=== PATIENT | female | born 1955 | race Caucasian/White ===

== ENCOUNTER 2018-04-27 10:32 | Emergency (ER) | payer OTHER ==
[~2018-04-27] VITALS: Ht 162.6 cm; Wt 108.9 kg
[~2018-04-27 10:32] MED LIST: ACIPHEX 20 MG T20 MG PO; ADULT LOW DOSE81 MG PO; ALLEGRA180 MG PO; AMOXICILLIN875 MG PO; BENTYL20 MG PO; CIPRO250 MG PO; COREG CR20 MG PO; CYTOMEL 5MCG TA5 MC1 NG; FAMCICLOVIR125 MG PO; FENOFIBRATE200 MG PO; FISH OIL 1,0001 EAC5 PO; FLEXERIL PO; FLONASE 0.05%50 MCG NASAL; GLUCOPHAGE XR750 MG PO; GLUMETZA500 MG PO; LEVAQUIN 750 M750 MG PO; MEDROLDOSEPACK PO; NAPROSYN500 MG PO; NEURONTIN300 MG PO; NORCO 5-325 TA1 EACH PO; PREMARIN0.625 MG PO; PREVACID; PYRIDIUM200 MG PO; SINGULAIR; SINGULAIR 10 MG10 M1 PO; SYNTHROID125 MCG PO; SYNTHROID150 MCG PO; VITAMIN B-12500 MCG PO; VITAMIN D1000 UNI1 PO; VITAMIN D250000 UNIT PO; VOLTAREN GEL 1100 G2 TOP; ZOFRAN ODT4 MG PO; ZYRTEC; ZYRTEC10 MG PO
[2018-04-27] MEDS ORDERED: PRILOSEC OTC20 MG PO (10:46)
[2018-04-27] MEDS ORDERED: KEFLEX500 M1 PO (10:46)
[2018-04-27] MEDS ORDERED: IMDUR 30 MG TAB30 M1 (10:47)
[2018-04-27] MEDS ORDERED: PAXIL10 MG PO (10:47)
[2018-04-27] MEDS ORDERED: MAGOX 400400 MG PO (10:47)
[2018-04-27] MEDS ORDERED: TUMS PO (10:48)
[2018-04-27 11:08] LABS: ABSOLUTE BASOPHILS 0.1 thou/uL (0.0-0.2); ABSOLUTE EOSINOPHILS 0.4 thou/uL (0.0-0.7); ABSOLUTE LYMPHOCYTES 2.4 thou/uL (0.8-5.3); ABSOLUTE MONOCYTES 0.5 thou/uL (0.0-1.2); BASOPHILS 1.1 %; EOSINOPHILS 6.6 %; HEMATOCRIT 43.1 % (37.0-47.0); HEMOGLOBIN 14.3 gm/dL (12.0-15.0); LYMPHOCYTES 37.5 %; MCH 30.7 pg (26.0-34.0); MCHC 33.3 g/dL (28.0-37.0); MCV 92.4 fL (80.0-100.0); MONOCYTES 7.9 %; MPV 7.6 fl. (7.2-11.1); NUCLEATED RBCS 0 /100WBC; PLATELET COUNT* 206 thou/uL (150-400); POLYS 46.9 %; RBC 4.66 mil/uL (4.20-5.00); RDW-CV 13.2 % (10.5-14.5); WBC 6.4 thou/uL (4.0-11.0)
[2018-04-27 11:24] LABS: ANION GAP 8 mmol/L (7-16); APTT 27.6 Seconds (25.0-31.3); BUN 16 mg/dL (7-18); CALCIUM 8.6 mg/dL (8.5-10.1); CHLORIDE 105 mmol/L (98-107); CO2 24 mmol/L (21-32); CREATININE 0.8 mg/dL (0.6-1.3); GLUCOSE 176 mg/dL (70-99); INR 1.1; POTASSIUM 4.1 mmol/L (3.5-5.1); PROTIME 10.9 Seconds (9.20-11.50); SODIUM 137 mmol/L (136-145)
[2018-04-27 11:42] LABS: ALBUMIN 3.4 g/dL (3.4-5.0); ALKALINE PHOSPHATASE 104 U/L (46-116); CK-MB MASS 2.7 ng/mL (<0.5-3.6); LIPASE 159 U/L (73-393); MAGNESIUM 1.9 mg/dL (1.8-2.4); NT-PRO BRAIN NAT PEPTIDE 63 pg/mL (<300); SGOT 65 U/L (15-37); SGPT 93 U/L (30-65); TOTAL BILIRUBIN 0.3 mg/dL (<0.1-1.0); TOTAL PROTEIN 6.8 g/dL (6.4-8.2); TROPONIN-I LEVEL <0.06 ng/mL (<0.06)
[2018-04-27 12:18] LABS: URINE BILIRUBIN NEGATIVE (Negative); URINE BLOOD NEGATIVE (Negative); URINE CLARITY CLEAR; URINE COLOR YELLOW; URINE GLUCOSE-RANDOM TRACE (Negative); URINE KETONES NEGATIVE (Negative); URINE LEUKOCYTES-REFLEX NEGATIVE (Negative); URINE NITRITE-REFLEX NEGATIVE (Negative); URINE PROTEIN NEGATIVE (Negative); URINE UROBILINOGEN 0.2 E.U./dl (0.2-1.0)
[2018-04-27 12:33] VITALS: BP 121/46
--- NOTE | 2018-04-27 14:36 | EKG ---
[place] [address] ELECTROCARDIOGRAM REPORT Name: JANENE COTTON Room: [facility]#: [id number] Admission: 04/27/18 Attend Phys: Discharge: 04/27/18 Date of : 51 Report #: [id number] THIS REPORT FOR: //name// 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
== END 2018-04-27 12:38 | disposition home or self-care (01) ==
LOC: M.ERS 10:32
PROVIDERS: Family Medicine
DX: R07.89 Other chest pain (principal); R06.02 Shortness of breath; R42 Dizziness and giddiness; I25.10 Atherosclerotic heart disease of native coronary artery without angina pectoris; I10 Essential (primary) hypertension; Z90.49 Acquired absence of other specified parts of digestive tract; Z90.710 Acquired absence of both cervix and uterus; Z88.1 Allergy status to other antibiotic agents; Z88.8 Allergy status to other drugs, medicaments and biological substances

== ENCOUNTER 2018-11-17 13:18 | Inpatient (IN) | payer OTHER, MEDICARE ==
[~2018-11-17] VITALS: Ht 162.6 cm; Wt 107.5 kg
[~2018-11-17 13:18] MED LIST changes: +IMDUR 30 MG TAB30 M1; +KEFLEX500 M1 PO; +MAGOX 400400 MG PO; +PAXIL10 MG PO; +PRILOSEC OTC20 MG PO; +TUMS PO
[2018-11-17 13:23] VITALS: BP 160/61
[2018-11-17] MEDS ORDERED: VITAMIN E400 UNI5 PO (13:29)
[2018-11-17] MEDS ORDERED: PROBIOTIC1 EAC1 PO (13:30)
[2018-11-17] MEDS ORDERED: CITRACAL + D E1 EACH PO (13:30)
[2018-11-17] MEDS ORDERED: CYTOMEL 5MCG TA5 MCG PO (13:30)
[2018-11-17] MEDS ORDERED: LOVAZA1000 MG PO (13:31)
[2018-11-17 13:39] LABS: ABSOLUTE BASOPHILS 0.1 thou/uL (0.0-0.2); ABSOLUTE EOSINOPHILS 0.3 thou/uL (0.0-0.7); ABSOLUTE LYMPHOCYTES 2.3 thou/uL (0.8-5.3); ABSOLUTE MONOCYTES 0.6 thou/uL (0.0-1.2); ABSOLUTE NEUTROPHILS 5.5 thou/uL (1.6-8.1); BASOPHILS 0.8 %; EOSINOPHILS 3.9 %; LYMPHOCYTES 25.9 %; MCH 31.3 pg (26.0-34.0); MCHC 34.1 g/dL (28.0-37.0); MONOCYTES 6.5 %; MPV 7.4 fl. (7.2-11.1); NUCLEATED RBCS 0 /100WBC; PLATELET COUNT* 231 thou/uL (150-400); POLYS 62.9 %; RBC 4.79 mil/uL (4.20-5.00); RDW-CV 13.1 % (10.5-14.5); WBC 8.8 thou/uL (4.0-11.0)
[2018-11-17 13:58] LABS: ANION GAP 9 mmol/L (7-16); BUN 16 mg/dL (7-18); CHLORIDE 105 mmol/L (98-107); CO2 26 mmol/L (21-32); CREATININE 0.8 mg/dL (0.6-1.3); GLUCOSE 177 mg/dL (70-99); POTASSIUM 4.2 mmol/L (3.5-5.1); SODIUM 140 mmol/L (136-145)
[2018-11-17 14:07] LABS: ALBUMIN 3.7 g/dL (3.4-5.0); ALKALINE PHOSPHATASE 100 U/L (46-116); LIPASE 138 U/L (73-393); SGOT 76 U/L (15-37); SGPT 112 U/L (30-65); TOTAL BILIRUBIN 0.5 mg/dL (<0.1-1.0); TOTAL PROTEIN 7.1 g/dL (6.4-8.2); TROPONIN-I LEVEL <0.06 ng/mL (<0.06)
[2018-11-17 15:06] LABS: URINE BILIRUBIN NEGATIVE (Negative); URINE BLOOD NEGATIVE (Negative); URINE CLARITY CLEAR; URINE COLOR YELLOW; URINE GLUCOSE-RANDOM NEGATIVE (Negative); URINE KETONES NEGATIVE (Negative); URINE LEUKOCYTES-REFLEX NEGATIVE (Negative); URINE NITRITE-REFLEX NEGATIVE (Negative); URINE PROTEIN NEGATIVE (Negative); URINE UROBILINOGEN 0.2 E.U./dl (0.2-1.0)
--- NOTE | 2018-11-17 16:25 | EKG ---
[place] [address] ELECTROCARDIOGRAM REPORT Name: JANENE COTTON Room: [place] [address] ADM IN .R.#: [id number] Admission: 11/17/18 Attend Phys: Paul Figueroa MD Discharge: Date of : 51 Report #: [id number] THIS REPORT FOR: //name// [facility] ED Test Date: 2018-11-17 Test Time: 13:23:30 Pat Name: JANENE COTTON Department: Room: [facility] Gender: F Bilingual Manager: Rahul METCALF : 1955 Requested By: Irene Simms Order Number: [id number] MD: Bill Mackenzie Measurements Intervals [place] Rate: 64 P: 59 GA: 158 QRS: 31 QRSD: 95 T: 77 QT: 398 QTc: 411 Interpretive Statements Sinus rhythm Compared to ECG 04/27/2018 10:36:49 No significant changes Electronically Signed On 11-17-2018 16:25:13 CDT by Bill Mackenzie [email or web address] <ELECTRONICALLY SIGNED> By: Bill Mackenzie MD, [facility] 11/17/18 1625 132 22 Bill Mackenzie MD, [facility] /EPI
[2018-11-17 17:12] VITALS: BP 168/85
[2018-11-17 19:33] VITALS: BP 141/68
[2018-11-17 20:00] VITALS: BP 159/57
[2018-11-17] MEDS ORDERED: COLACE 100 MG100 MG PO (21:25)
[2018-11-17] MEDS ORDERED: SENNA8.6 MG PO (21:27)
[2018-11-18] VITALS: BP 145/67
[2018-11-18 04:00] VITALS: BP 133/40
[2018-11-18 04:50] LABS: ABSOLUTE BASOPHILS 0.1 thou/uL (0.0-0.2); ABSOLUTE EOSINOPHILS 0.4 thou/uL (0.0-0.7); ABSOLUTE LYMPHOCYTES 3.2 thou/uL (0.8-5.3); ABSOLUTE MONOCYTES 0.8 thou/uL (0.0-1.2); ABSOLUTE NEUTROPHILS 3.1 thou/uL (1.6-8.1); BASOPHILS 0.7 %; HEMATOCRIT 44.5 % (37.0-47.0); HEMOGLOBIN 14.7 gm/dL (12.0-15.0); LYMPHOCYTES 42.8 %; MCH 30.7 pg (26.0-34.0); MCHC 33.1 g/dL (28.0-37.0); MCV 92.7 fL (80.0-100.0); MPV 7.5 fl. (7.2-11.1); NUCLEATED RBCS 0 /100WBC; PLATELET COUNT* 211 thou/uL (150-400); POLYS 41.5 %; WBC 7.5 thou/uL (4.0-11.0)
[2018-11-18 05:21] LABS: ANION GAP 8 mmol/L (7-16); BUN 14 mg/dL (7-18); CALCIUM 9.2 mg/dL (8.5-10.1); CHLORIDE 105 mmol/L (98-107); CHOLESTEROL 135 mg/dL (<200); CO2 27 mmol/L (21-32); CREATININE 0.7 mg/dL (0.6-1.3); GLUCOSE 119 mg/dL (70-99); HDL CHOLESTEROL 35 mg/dL (>40); LDL CHOLESTEROL 76 mg/dL (<100); POTASSIUM 4.2 mmol/L (3.5-5.1); SODIUM 140 mmol/L (136-145); TC:HDL 3.9 Ratio (Not establshd); TRIGLYCERIDE 121 mg/dL (<150); VLDL 24 mg/dL (<40)
[2018-11-18 05:23] LABS: SERUM ASSESSMENT CLEAR
[2018-11-18 08:00] VITALS: BP 131/61
[2018-11-18 11:06] LABS: GLYCOHEMOGLOBIN (HGB A1C) 5.8 % (4.8-5.6)
[2018-11-18 11:30] VITALS: BP 135/58
--- NOTE | 2018-11-18 13:02 | EKG ---
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
[2018-11-18 16:20] VITALS: BP 161/64
[2018-11-18 20:00] VITALS: BP 147/81
[2018-11-19] VITALS: BP 159/55
[2018-11-19 04:00] VITALS: BP 151/54
[2018-11-19 11:41] VITALS: BP 154/55
--- NOTE | 2018-11-19 12:59 | CARDNUC ---
[place] [address] CARDIAC NUCLEAR IMAGING REPORT Name: JANENE COTTON Room: [address] IN [facility].#: [id number] Admission: 11/17/18 Attend Phys: Paul Figueroa MD Discharge: Date of : 51 Date of Service: 11/19/18 1258 Report #: [id number] THIS REPORT FOR: //name// APPROVED REPORT Study performed: 11/18/2018 09:31:00 Indication: Chest pain Room #: 219 Stress Tech: Ivonne Smith Stress Nurse: Ella Jon RN Ht: 5 ft 4 in Wt: 240 lbs BSA: 2.11 m2 BMI: 41.19 Medical History Medical History: hyperlipidemia,palpitations Medications: atorvastatin, asa-325 Allergies: polymyxin b, neomycin, bacitracin Cardiac Risk Factors: age, hyperlipidemia, family hx Previous Cardiac Procedures: cath Exercise History: Indeterminate Resting Data Rest SPECT myocardial perfusion imaging was performed in supine position 30 minutes following the intravenous injection of 37.4 mCi of Tc-99m Sestamibi. Time of rest injection: 12:45 The images were gated to evaluate regional wall motion and calculate left ventricular ejection fraction. Administration Route: IV Administration Site: Right AC Pharmacologic Stress Pharmacologic stress test was performed by injecting Regadenoson 0.4 mg IV push over 10-15 seconds immediately followed by the intravenous injection of 34.1 mCi of Tc-99m Sestamibi. Time of stress injection: 09:30 Administration Route: IV Administration Site: Right AC Heart Rate at time of stress injection: 79 bpm. Gated Stress SPECT was performed 45 minutes after stress injection. The images were gated to evaluate regional wall motion and calculate left [place] [address] CARDIAC NUCLEAR IMAGING REPORT Name: JANENE COTTON Room: [address]#: [id number] Admission: 11/17/18 Attend Phys: Paul Figueroa MD Discharge: Date of : 51 Date of Service: 11/19/18 1258 Report #: [id number] Prone imaging was performed. Stress Test Details Stress Test: Pharmacologic stress testing performed using 0.4 mg of regadenoson per 5 mL given IV over 10 seconds. Reason for pharmacologic stress test: physical limitation. HR Max Heart Rate (APMHR): 155 bpm Resting HR: 60 bpm Target HR (85% APMHR): 131 bpm Max HR Achieved: 79 bpm % of APMHR: 50 Recovery HR: 72 bpm BP Resting BP: 163/76 mmHg Max BP: 184/65 mmHg Recovery BP: 192/75 mmHg ECG Resting ECG: Sinus Rhythm Stress ECG: Sinus Rhythm ST Change: None Arrhythmia: None Recovery ECG: Sinus Rhythm Recovery ST Change: None Recovery Arrhythmia: None Clinical Reason for Termination: Completed protocol Exercise duration: 0 min sec Exercise capacity: 1 METs The patient tolerated Lexiscan infusion without significant symptoms. Nurse Comments pt unable to walk on treadmill due to dizzyness and weakness Stress ECG Conclusion The baseline 12-lead EKG show sinus rhythm with no stiffness ST or T wave abnormalities. EKGs obtained during and post Lexiscan infusion show sinus rhythm with no significant ST or T wave changes when compared baseline. There were no stress-induced arrhythmias. Study Quality Study: Good Artifact: [place] [address] CARDIAC NUCLEAR IMAGING REPORT Name: JANENE COTTON Room: [address] IN [facility]#: [id number] Admission: 11/17/18 Attend Phys: Paul Figueroa MD Discharge: Date of : 51 Date of Service: 11/19/18 1258 Report #: [id number] Study Data At rest, the left ventricular ejection fraction was 77%.. Post stress, the left ventricular ejection was 80%.. TID = 0.99. Perfusion Normal left ventricular perfusion. Wall Motion Normal left ventricular wall motion. Nuclear Conclusion ECG Findings: negative for ischemia Clinical Findings: negative for ischemia Nuclear Findings: negative for ischemia Exercise Capacity: not assessed Left Ventricular Function: normal Risk Study: low Myocardial perfusion images show no defect to suggest infarct or ischemia. Left ventricular systolic function appears normal on gated studies. This is a low risk study. <Conclusion> The baseline 12-lead EKG show sinus rhythm with no stiffness ST or T wave abnormalities. EKGs obtained during and post Lexiscan infusion show sinus rhythm with no significant ST or T wave changes when compared baseline. There were no stress-induced arrhythmias. <ELECTRONICALLY SIGNED> By: Mal Art MD, FACC 11/19/18 1258 1258 1258 Mal Art MD, FACC /INF
[2018-11-19] MEDS ORDERED: PROTONIX40 M1 PO (13:02)
[2018-11-19 14:10] VITALS: BP 154/55
== END 2018-11-19 15:46 | disposition home or self-care (01) | DRG 392 ==
LOC: M.ERS 13:18 → M.2W 15:37 → M.TBA-ER 15:37 → M.2W 19:39
PROVIDERS: Nurse Practitioner Family; ADMIT Family Medicine
DX: K21.9 Gastro-esophageal reflux disease without esophagitis (principal); Z68.41 Body mass index [BMI] 40.0-44.9, adult; E66.01 Morbid (severe) obesity due to excess calories; I25.10 Atherosclerotic heart disease of native coronary artery without angina pectoris; E03.9 Hypothyroidism, unspecified; I10 Essential (primary) hypertension; K58.9 Irritable bowel syndrome, unspecified; R16.0 Hepatomegaly, not elsewhere classified; E06.3 Autoimmune thyroiditis; K76.0 Fatty (change of) liver, not elsewhere classified; E78.5 Hyperlipidemia, unspecified; G47.33 Obstructive sleep apnea (adult) (pediatric); Z90.710 Acquired absence of both cervix and uterus; Z88.1 Allergy status to other antibiotic agents; Z88.8 Allergy status to other drugs, medicaments and biological substances; Z87.891 Personal history of nicotine dependence; Z79.82 Long term (current) use of aspirin; Z79.899 Other long term (current) drug therapy

== ENCOUNTER → 2020-04-11 | Outpatient (CLI) | payer OTHER ==
[~2020-04-11] MED LIST changes: +CITRACAL + D E1 EACH PO; +COLACE 100 MG100 MG PO; +CYTOMEL 5MCG TA5 MCG PO; +LOVAZA1000 MG PO; +PROBIOTIC1 EAC1 PO; +PROTONIX40 M1 PO; +SENNA8.6 MG PO; +VITAMIN E400 UNI5 PO
== END ==
LOC: M.ULTRA 11:58
PROVIDERS: ATTEND Family Medicine
DX: M79.661 Pain in right lower leg (principal)

== ENCOUNTER 2021-04-26 16:23 | Emergency (ER) | payer OTHER ==
[~2021-04-26] VITALS: Ht 162.6 cm; Wt 108.9 kg
[~2021-04-26 16:23] MED LIST changes: -IMDUR 30 MG TAB30 M1; +ISOSORBIDE MON120 MG PO
[2021-04-26] MEDS ORDERED: LASIX 40 MG TAB40 MG PO (16:41)
[2021-04-26] MEDS ORDERED: ZETIA10 MG PO (16:41)
[2021-04-26] MEDS ORDERED: PLAVIX 75 MG TA75 MG PO (16:41)
[2021-04-26] MEDS ORDERED: HYDROCODON-ACE1 EAC7 PO (17:27)
[2021-04-26 17:36] VITALS: BP 161/74
== END 2021-04-26 16:36 | disposition home or self-care (01) ==
LOC: M.ERS 16:23
DX: M25.551 Pain in right hip (principal); M79.18 Myalgia, other site; M54.50 Low back pain, unspecified; R20.2 Paresthesia of skin; I25.10 Atherosclerotic heart disease of native coronary artery without angina pectoris; E03.9 Hypothyroidism, unspecified; I10 Essential (primary) hypertension; Z90.711 Acquired absence of uterus with remaining cervical stump; Z90.49 Acquired absence of other specified parts of digestive tract; Z95.5 Presence of coronary angioplasty implant and graft; Z79.899 Other long term (current) drug therapy; Z79.82 Long term (current) use of aspirin; Z88.1 Allergy status to other antibiotic agents; Z88.8 Allergy status to other drugs, medicaments and biological substances

== ENCOUNTER 2021-08-16 19:34 | Emergency (ER) | payer OTHER ==
[~2021-08-16] VITALS: Ht 162.6 cm; Wt 106.1 kg
[~2021-08-16 19:34] MED LIST changes: +HYDROCODON-ACE1 EAC7 PO; +LASIX 40 MG TAB40 MG PO; +PLAVIX 75 MG TA75 MG PO; +ZETIA10 MG PO
[2021-08-16 20:29] LABS: ABSOLUTE BASOPHILS 0.1 thou/uL (0.0-0.2); ABSOLUTE EOSINOPHILS 0.1 thou/uL (0.0-0.7); ABSOLUTE LYMPHOCYTES 2.2 thou/uL (0.8-5.3); ABSOLUTE MONOCYTES 0.5 thou/uL (0.0-1.2); ABSOLUTE NEUTROPHILS 2.9 thou/uL (1.6-8.1); BASOPHILS 0.9 %; EOSINOPHILS 1.9 %; HEMATOCRIT 41.2 % (37.0-47.0); HEMOGLOBIN 14.2 gm/dL (12.0-15.0); LYMPHOCYTES 38.3 %; MCHC 34.5 g/dL (28.0-37.0); MONOCYTES 8.7 %; MPV 6.9 fl. (7.2-11.1); NUCLEATED RBCS 0 /100WBC; PLATELET COUNT* 176 thou/uL (150-400); POLYS 50.2 %; RBC 4.58 mil/uL (4.20-5.00); RDW-CV 13.4 % (10.5-14.5); WBC 5.7 thou/uL (4.0-11.0)
[2021-08-16 20:34] LABS: CALCIUM 8.6 mg/dL (8.5-10.1); CREATININE 0.8 mg/dL (0.6-1.3)
[2021-08-16 20:44] LABS: ALBUMIN 3.2 g/dL (3.4-5.0); TOTAL BILIRUBIN 0.7 mg/dL (<0.1-1.0); TOTAL PROTEIN 6.7 g/dL (6.4-8.2)
[2021-08-16 21:36] LABS: INFLUENZA A ANTIGEN Negative (Negative); INFLUENZA B ANTIGEN Negative (Negative)
[2021-08-16 22:58] LABS: URINE BILIRUBIN NEGATIVE (Negative); URINE BLOOD NEGATIVE (Negative); URINE CLARITY CLEAR; URINE COLOR DARK YELLOW; URINE GLUCOSE-RANDOM NEGATIVE (Negative); URINE KETONES TRACE (Negative); URINE LEUKOCYTES-REFLEX NEGATIVE (Negative); URINE NITRITE-REFLEX NEGATIVE (Negative); URINE PROTEIN NEGATIVE (Negative)
[2021-08-16] MEDS ORDERED: ZOFRAN ODT4 MG PO (23:34)
[2021-08-16 23:48] VITALS: BP 166/59
--- NOTE | 2021-08-17 10:34 | EKG ---
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: [facility] : 1955 Requested By: Kayli Rudd Order Number: [id number] MD: Bill Mackenzie Measurements Intervals [place] Rate: 89 P: 37 [place]: 146 QRS: 5 QRSD: 93 T: 109 QT: 361 QTc: 440 Interpretive Statements Sinus rhythm Repol abnrm suggests ischemia, lateral leads Compared to ECG 11/18/2018 04:51:25 Possible ischemia now present Electronically Signed On 08-17-2021 10:33:51 WOOL GRADER by Bill Mackenzie [email or web address] <ELECTRONICALLY SIGNED> By: Bill Mackenzie MD, FACC 08/17/21 1033 99 99 Bill Mackenzie MD, [facility] /EPI
== END 2021-08-16 23:48 | disposition home or self-care (01) ==
LOC: M.ERS 19:34
PROVIDERS: Emergency Medicine
DX: U07.1 COVID-19 (principal); R53.83 Other fatigue; E87.6 Hypokalemia; I25.10 Atherosclerotic heart disease of native coronary artery without angina pectoris; E03.9 Hypothyroidism, unspecified; I10 Essential (primary) hypertension; Z90.710 Acquired absence of both cervix and uterus; Z90.49 Acquired absence of other specified parts of digestive tract; Z90.89 Acquired absence of other organs; Z79.82 Long term (current) use of aspirin; Z79.891 Long term (current) use of opiate analgesic; Z79.1 Long term (current) use of non-steroidal anti-inflammatories (NSAID); Z79.899 Other long term (current) drug therapy; Z88.1 Allergy status to other antibiotic agents; Z88.8 Allergy status to other drugs, medicaments and biological substances